=== PATIENT | female | born 1980 | race Caucasian/White ===

== ENCOUNTER 2017-01-09 05:04 | Emergency (ER) | payer BC ==
[2017-01-09 05:16] VITALS: BP 133/82
[2017-01-09] MEDS ORDERED: LORazepam 2 MG/ML MDV IVPUSH ONE (05:24)
--- NOTE | 2017-01-09 05:29 | EDM.PDOC ---
ED HPI GENERAL MEDICAL PROBLEM - General Chief Complaint: Neurological Problem Stated Complaint: vomiting dizzy shakes Time Seen by Provider: 01/09/17 05:23 Source of Information: Reports: Patient, Family (spouse) History Limitations: Reports: Altered Mental Status - History of Present Illness INITIAL COMMENTS - FREE TEXT/NARRATIVE: 36-year-old female comes to the ED with her . History is primarily provided by the as the patient has no recollection of what has happened to her. reports that he awoke it is the bed was shaking and he turned on the light and witness his shaking rhythmically particularly in her upper extremities. She had a dazed confused look on her face during off into space. He appreciated that she seemed to have spit up or vomited a small quantity on her nature. He states that the shaking episode lasted less than 5 minutes. After this she was very disoriented and confused initially could just stare at him it was a good 10 or 15 minutes before she can respond verbally and she remained very confused disoriented. He found it difficult to try and get her out to the car to bring her to the hospital as she turned around went back into the house. He called her father to come over and help convince her that this was the right thing to do. She's never had a seizure in the past. She spent most of the weekend in [place] at a woman's retreat. Denies any heavy alcohol use. She states that was disrupted sleep as she had to sleep in the same room as another female who snored a great deal and kept her awake the first night. Secondly she got a little sleep when she slept on the couch. She takes no new medications. She takes a herbal anxiety relief medication. This is not new for her. She takes hyoscyamine tablet daily for irritable bowel syndrome. No recent falls or closed head injuries. No recent illnesses with fever chills nausea or vomiting. At present she denies a headache. She is concerned because she can't remember certain things. Her related that initially she didn't know who he was. Initially she had trouble walking as she was very weak in her extremities. The history strongly suggests that she had a seizure with postictal phase. She is now able to answer all questions appropriately but can't remember what has happened to her of course.no history of tongue biting or loss of bowel or bladder control. Onset: Today Onset Date: 01/09/17 Onset Time: 04:20 Duration: Minutes: (best estimate by .) Location: Reports: Generalized Severity: Moderate Improves with: Reports: Other (cognitive function has returned over time as has her mobility.) Worsens with: Reports: None Context: Reports: Other (awoke from sleep with seizure activity.) Associated Symptoms: Reports: Confusion, Nausea/Vomiting (small amount of emesis occurred according to the was on her night shirt when he woke awoke from), Seizure, Weakness ( for a significant period of time.). 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: Reports: Other (see below) (none.) - Related Data Allergies Allergy/AdvReac Type Severity Reaction Status Date / Time codeine Allergy Confusion Verified 01/09/17 05:17 Home Meds: Home Meds Cholecalciferol (Vitamin D3) [Vitamin D] 1 tab PO DAILY 01/09/17 [History] Fexofenadine [Mayra] 60 mg PO DAILY 01/09/17 [History] Hyoscyamine Sulfate [Hyoscyamine Sulfate ER] 0.375 mg PO DAILY 01/09/17 [History ] Pantoprazole Sodium [Protonix] 20 mg PO DAILY 01/09/17 [History] Past Medical History Gastrointestinal History: Reports: Irritable Bowel Syndrome Social & Family History - Living Situation & Occupation Living situation: Reports: Occupation: Employed ED ROS GENERAL - Review of Systems Review Of Systems: See Below Constitutional: Reports: Weakness, Fatigue. Denies: Fever, Chills, Malaise, Decreased Appetite, Weight Loss HEENT: Reports: No Symptoms Respiratory: Reports: No Symptoms Cardiovascular: Reports: No Symptoms Endocrine: Reports: Fatigue GI/Abdominal: Reports: No Symptoms : Reports: No Symptoms Musculoskeletal: Reports: No Symptoms Skin: Reports: Pallor, Diaphoresis Neurological: Reports: Confusion (but this is), Difficulty Walking ( generalizedinitially but pretty well back to normal by the time she can't got to the ED.), Weakness, Change in Speech (speech was very slow and slurred and nonpurposeful initially but has gradually returned to normal.). Denies: Dizziness ( improving good deal over the last half hour.), Headache, Numbness, Syncope, Tingling Psychiatric: Reports: Anxiety Hematologic/Lymphatic: Reports: No Symptoms Immunologic: Reports: No Symptoms - Physical Exam Exam: See Below Exam Limited By: No Limitations General Appearance: Alert, WD/WN, Anxious, Moderate Distress, Other (pale in color.) Eye Exam: Bilateral Eye: Normal Inspection, PERRL Throat/Mouth: Normal Inspection, Normal Lips, Normal Teeth, Normal Oropharynx. No: Evidence of Tongue Biting Head Exam: Atraumatic, Normocephalic Neck: Normal Inspection, Supple, Non-Tender, Full Range of Motion. No: Lymphadenopathy (L), Lymphadenopathy (R) Respiratory/Chest: Lungs Clear, Normal Breath Sounds, No Accessory Muscle Use, Respiratory Distress (mild tachypnea) Cardiovascular: Normal Peripheral Pulses, No Edema, No Gallop, No Murmur, No Rub , Tachycardia (resting tachycardia at 1 12/m.) GI/Abdominal: Normal Bowel Sounds, Soft, Non-Tender, No Organomegaly, No Abnormal Bruit, No Mass Neuro Exam (Abbreviated): Alert, Oriented, CN II-XII Intact, Normal Cognition, Normal Reflexes, No Motor/Sensory Deficits, Memory Loss Recent Events, Other ( Babinski was negative.). No: Sensory/Motor Deficit DTR: 2+: Achilles (R), Achilles (L), 3+: Bicep (R), Bicep (L), Patella (R), Patella (L) Back Exam: Normal Inspection Extremities: Normal Inspection, Normal Range of Motion, Non-Tender, No Pedal Edema, Normal Capillary Refill Psychiatric: Anxious Skin Exam: Warm, Dry, Cool, Pallor (moderate) Course - Vital Signs Last Recorded V/S: Last Vital Signs Temp 36.2 C 01/09/17 05:10 Pulse 111 H 01/09/17 05:10 Resp 22 H 01/09/17 05:10 BP 133/82 01/09/17 05:10 Pulse Ox 93 L 01/09/17 05:10 - Orders/Labs/Meds Labs: Laboratory Tests 01/09/17 01/09/17 01/09/17 Range/Units 05:13 05:15 05:15 WBC 9.13 (3.98-10.04) K/mm3 RBC 4.63 (3.98-5.22) M/mm3 Hgb 13.4 (11.2-15.7) gm/L Hct 39.7 (34.1-44.9) % MCV 85.7 (79.4-94.8) fl MCH 28.9 (25.6-32.2) pg MCHC 33.8 (32.2-35.5) g/dl RDW Std Deviation 41.5 (36.4-46.3) fL Plt Count 354 (182-369) K/mm3 MPV 9.1 L (9.4-12.3) fl Neutrophils % (Manual) 50 (40-60) % Band Neutrophils % 0 (0-10) % Lymphocytes % (Manual) 38 (20-40) % Atypical Lymphs % 0 % Monocytes % (Manual) 9 (2-10) % Eosinophils % (Manual) 3 (0.7-5.8) % Basophils % (Manual) 0 L (0.1-1.2) Platelet Estimate Adequate RBC Morph Comment Normal Sodium 139 (136-145) mEq/L Potassium 3.9 (3.5-5.1) mEq/L Chloride 103 (98-107) mEq/L Carbon Dioxide 22 (21-32) mEq/L Anion Gap 17.9 H (5-15) BUN 14 (7-18) mg/dL Creatinine 0.9 (0.55-1.02) mg/dL Est Cr Clr Drug Dosing 64.58 mL/min Estimated GFR (MDRD) > 60 (>60) mL/min BUN/Creatinine Ratio 15.6 (14-18) Glucose 115 H (74-106) mg/dL POC Glucose 109 H (70-105) mg/dL Lactic Acid (0.4-2.0) mmol/L Calcium 8.9 (8.5-10.1) mg/dL Magnesium 1.9 (1.8-2.4) mg/dl Total Bilirubin 0.3 (0.2-1.0) mg/dL AST 24 (15-37) U/L ALT 44 (14-59) U/L Alkaline Phosphatase 88 (46-116) U/L Total Protein 7.0 (6.4-8.2) g/dl Albumin 3.2 L (3.4-5.0) g/dl Globulin 3.8 gm/dL Albumin/Globulin Ratio 0.8 L (1-2) 10/09/17 Range/Units 05:35 WBC (3.98-10.04) K/mm3 RBC (3.98-5.22) M/mm3 Hgb (11.2-15.7) gm/L Hct (34.1-44.9) % MCV (79.4-94.8) fl MCH (25.6-32.2) pg MCHC (32.2-35.5) g/dl RDW Std Deviation (36.4-46.3) fL Plt Count (182-369) K/mm3 MPV (9.4-12.3) fl Neutrophils % (Manual) (40-60) % Band Neutrophils % (0-10) % Lymphocytes % (Manual) (20-40) % Atypical Lymphs % % Monocytes % (Manual) (2-10) % Eosinophils % (Manual) (0.7-5.8) % Basophils % (Manual) (0.1-1.2) Platelet Estimate RBC Morph Comment Sodium (136-145) mEq/L Potassium (3.5-5.1) mEq/L Chloride (98-107) mEq/L Carbon Dioxide (21-32) mEq/L Anion Gap (5-15) BUN (7-18) mg/dL Creatinine (0.55-1.02) mg/dL Est Cr Clr Drug Dosing mL/min Estimated GFR (MDRD) (>60) mL/min BUN/Creatinine Ratio (14-18) Glucose (74-106) mg/dL POC Glucose (70-105) mg/dL Lactic Acid 2.2 H (0.4-2.0) mmol/L Calcium (8.5-10.1) mg/dL Magnesium (1.8-2.4) mg/dl Total Bilirubin (0.2-1.0) mg/dL AST (15-37) U/L ALT (14-59) U/L Alkaline Phosphatase (46-116) U/L Total Protein (6.4-8.2) g/dl Albumin (3.4-5.0) g/dl Globulin gm/dL Albumin/Globulin Ratio (1-2) Meds: Medications Discontinued Medications Generic Name Dose Route Start Last Admin Trade Name Freq PRN Reason Stop Dose Admin Dextrose/Sodium Chloride 1,000 mls @ 150 mls/hr 01/09/17 05:30 01/09/17 05:34 Dextrose 5%-Normal Saline IV 150 mls/hr ASDIRECTED BRUCE Administration Lorazepam 1 mg 01/09/17 05:24 01/09/17 05:29 Ativan IVPUSH 01/09/17 05:25 1 mg ONETIME ONE Administration - Radiology Interpretation Free Text/Narrative:: 36-year-old female presents the ED in the accompaniment of her . He is able to provide most of the history. States he awoke from sleep due to the bed shaking. When he turned on the light he witnessed his experiencing jerking movements of her arms that he could appreciate and appeared to have vomited a bit on her night shirt. He states the seizure like activity or clonic activity lasted 3-5 minutes. She was then very lethargic and confused and could not speak for a lengthy period of time. Speech gradually improved so that it was purposeful and normal. Initially it was slurred and slow. Similarly her motor activity took a good time length of time to improve to the point that she could walk. It is estimated that her postictal phase last about 45 minutes. Patient has no recollection of what is happening to her. He had a weekend away from home and recognized 1 night without any sleep due to persistent her sleeping quarters snoring a good deal.skeletal better sleep Monday night. No alcohol use. Denies taking any street drugs. No changes to her usual medications. No history of previous seizure problems. Plan IV D5 normal saline at 150 mils per hour. We'll give her Ativan 1 mg IV to prevent further seizure activity and provide mild sedation for CT of the brain. Routine labs to be collected. - Re-Assessments/Exams Free Text/Narrative Re-Assessment/Exam: 01/09/17 06:09 CT of the brain appears to be completely normal. 01/09/17 06:10 Labs are back revealing a white count of 9.13 with differential pending. Hemoglobin is good at 13.4 hematocrit is 39.7. Platelets normal 354, 000. Sodium 139 potassium 3.9 chloride 103 bicarbonate 22 and a gap is elevated at 17.9 compatible with a metabolic acidosis occurring from seizure activity. Creatinine is 0.9 EGFR is greater than 60. Glucose is 1:15. Calcium was normal at 8.9 magnesium normal at 1.9. Liver function normal albumin slightly low at 3.2. Total protein normal. 01/09/17 06:33 Patient is back to normal.she is a little tired from the Ativan. Plan will be to put her off work today so that she can catch up on sleep she missed over the weekend. The disrupted sleep for 2 days could well of the no precipitant for the seizure to occurred. At this time I will not place her on any antiseizure medication. I'll up with her normal care provider Shannan Self to have arrange an MRI of her brain and an EEG study. If these are normal then we adopt a wait and see approach as many times patients never have another seizure. Her high also mean is an anticholinergic and does lower seizure threshold. However she's been on this medication for many years. Departure - Departure Time of Disposition: 06:35 Disposition: Home, Self-Care 01 Condition: Fair Clinical Impression: New onset seizure - Discharge Information Instructions: Nonepileptic Seizures Referrals: Shannan Self, [employer] SUPERVISOR [Primary Care Provider] - Forms: ED Department Discharge, ED Return to Work/School Form Additional Instructions: Evaluation in the emergency room this morning due to new onset grand mal seizure occurrence during the night. Seizure activity awoke her from sleep and he was able to provide a very good history of her postictal phase which means the period of time after a seizure occurs in terms of not being able to speak immediately days and very confused and often taking 30-40 minutes before you return to normal. Often unable to walk because of weakness in the muscles etc. I don't have any doubt that you had a seizure this morning. The cause of the seizure is left up in the air. It is highly likely that lack of sleep Monday and Monday night may well of precipitated your seizure.CT scan of your brain done in the ED is completely normal with no signs of bleeding or tumor or mass effect. Similarly labs are essentially normal other than elevation of markers that suggest seizure has occurred.at this time we will would not recommend antiseizure medication. As often patients have one seizure and never have another one. I would suggest off work today to catch up on lost sleep over the weekend. Also you were given a dose of Ativan 1 mg in the emergency room to suppress any further seizure activity for the next 6-8 hours. This also will make you a bit tired and usually will need to go to bed this morning. Follow-up with Shannan Self when able. She will arrange for an MRI of your brain and an EEG study to see if there are any abnormalities detected by these test. If none are found then we usually adopt a wait and see approach as to whether or not any further seizure activity occurs. If it does so we usually would advise starting antiseizure medication. Would recommend no driving for the next 48 hours and if no further seizure activity occurs you may resume normal driving activities.
[2017-01-09] MEDS ORDERED: Dextrose 5%-0.9% NaCl 1,000 ML IV SCH (05:30)
--- NOTE | 2017-01-09 06:21 | CT ---
Head CT Technique: Multiple axial sections through the brain were obtained. Intravenous contrast was not utilized. Comparison: No previous intracranial imaging. Findings: Ventricles along with basal cisterns and sulci over the convexities are within normal limits for the patient's age. No abnormal parenchymal densities are seen. No evidence of intracranial hemorrhage. No midline shift or mass effect is seen. Bone window settings were reviewed which shows no acute calvarial abnormality. Visualized sinuses are clear. Impression: 1. Nothing acute is identified on noncontrast head CT study. Diagnostic code #1
== END 2017-01-09 06:55 | disposition home or self-care (01) ==
LOC: JD.ED 05:04
DX: R56.9 Unspecified convulsions (principal); Z88.5 Allergy status to narcotic agent; Z79.899 Other long term (current) drug therapy
CPT/HCPCS: 36415; 70450; 80053; 82962; 83605; 83735; 85025; 96361; 96374; 99285; J2060; J7042

== ENCOUNTER 2020-05-28 19:49 | Emergency (ER) | payer OTHER ==
[2020-05-28 20:05] VITALS: BP 116/78; PULSE 98
[2020-05-28] MEDS ORDERED: Sodium Chloride 0.9% 10 ML Syringe FLUSH PRN (20:15)
[2020-05-28] MEDS ORDERED: Ondansetron 4 MG/2 ML SDV IVPUSH ONE ×2 (20:17→21:20)
[2020-05-28] MEDS ORDERED: HYDROmorphone 0.5 MG/0.5 ML Syringe IVPUSH ONE (20:17)
--- NOTE | 2020-05-28 20:36 | EDM.PDOC ---
ED HPI GENERAL MEDICAL PROBLEM - General Source of Information: Reports: Patient, Family, RN Notes Reviewed History Limitations: Reports: No Limitations Jaw Pain Score (Numeric/FACES): 8 <Silvia Urbina - Last Filed: 06/01/20 20:43> <Nehemias Naylor - Last Filed: 06/07/20 07:46> - General Chief Complaint: Neurological Problem Stated Complaint: SEIZURE AND INJURED JAW Time Seen by Provider: 05/28/20 20:02 - History of Present Illness INITIAL COMMENTS - FREE TEXT/NARRATIVE: Patient is a 39-year-old female presenting to the emergency department with her with complaints of jaw pain and inability to close her mouth after having a grand mal seizure at home. Patient has a known seizure disorder. Pat karey and state that her neurologist, Dr. Tinoco, is in the process of adjusting her medications that they have been dealing with breakthrough seizures intermittently during this adjustment period. This evening, she felt the onset of seizure and her assisted her to the couch. She did not fall. states that she had a grand mal seizure lasting approximately 1 minute. During the seizure, her "jaw contorted "and she has been unable to close her jaw since. She states that she has pain to the bilateral mandible. Aside from not being able to close her jaw, she feels well. Denies any postictal fatigue, nausea, or vomiting. (Silvia Urbina) - Related Data Allergies Allergy/AdvReac Type Severity Reaction Status Date / Time povidone-iodine Allergy Severe Cannot Verified 05/28/20 20:05 Remember shellfish derived Allergy Severe Cannot Verified 05/28/20 20:05 Remember codeine AdvReac Severe Confusion Verified 05/28/20 20:05 Home Meds: Home Meds Cholecalciferol (Vitamin D3) [Vitamin D] 1 tab PO DAILY 01/09/17 [History] Fexofenadine [Mayra] 60 mg PO DAILY 01/09/17 [History] Hyoscyamine Sulfate [Hyoscyamine Sulfate ER] 0.375 mg PO DAILY 01/09/17 [History] Pantoprazole Sodium [Protonix] 20 mg PO DAILY 01/09/17 [History] Acetaminophen/HYDROcodone [Bradgate 325-5 MG] 1 tab PO Q4H PRN #10 tablet 05/28/20 [Rx] busPIRone [Buspar] 7.5 mg PO TID 05/28/20 [History] lamoTRIgine [Lamotrigine] 150 mg PO BID 05/28/20 [History] levETIRAcetam [Keppra] 250 mg PO BID 05/28/20 [History] Past Medical History Gastrointestinal History: Reports: Irritable Bowel Syndrome ADOPTION COORDINATOR History: Reports: Endometrial Ablation, Endometriosis Neurological History: Reports: Migraines, Seizure Other Neuro History: maybe started in September 2019 Psychiatric History: Reports: Anxiety, Depression - Infectious Disease History Infectious Disease History: Reports: Chicken Pox - Past Surgical History GI Surgical History: Reports: Cholecystectomy <Silvia Urbina - Last Filed: 06/01/20 20:43> Social & Family History - Tobacco Use Tobacco Use Status *Q: Never Tobacco User - Caffeine Use Caffeine Use: Reports: Soda - Recreational Drug Use Recreational Drug Use: No - Living Situation & Occupation Living situation: Reports: Occupation: Employed <Silvia Urbina Last Filed: 06/01/20 20:43> ED ROS GENERAL - Review of Systems Review Of Systems: See Below Constitutional: Reports: No Symptoms. Denies: Fever, Chills, Weakness HEENT: Reports: Other (Jaw pain and inability to close mouth) Respiratory: Reports: No Symptoms Cardiovascular: Reports: No Symptoms Endocrine: Reports: No Symptoms GI/Abdominal: Reports: No Symptoms : Reports: No Symptoms Musculoskeletal: Reports: No Symptoms Skin: Reports: No Symptoms Neurological: Reports: Seizure Psychiatric: Reports: No Symptoms Hematologic/Lymphatic: Reports: No Symptoms Immunologic: Reports: No Symptoms <Silvia Urbina Last Filed: 06/01/20 20:43> - Physical Exam Exam: See Below General Appearance: Alert, WD/WN, No Apparent Distress Throat/Mouth: Other (Difficulty with speech. Jaw locked approximately 2 and half centimeters open.) Respiratory/Chest: No Respiratory Distress, Lungs Clear, Normal Breath Sounds, No Accessory Muscle Use, Chest Non-Tender Cardiovascular: Normal Peripheral Pulses, Regular Rate, Rhythm, No Edema, No Gallop, No JVD, No Murmur, No Rub Neuro Exam (Abbreviated): Alert, Oriented, CN II-XII Intact, Normal Cognition, Normal Gait, Normal Reflexes, No Motor/Sensory Deficits Psychiatric: Normal Affect, Normal Mood Skin Exam: Warm, Dry, Intact, Normal Color, No Rash <Silvia Urbina - Last Filed: 06/01/20 20:43> ED PROCEDURES - Joint Reduction Other Sedation: Conscious Sedation Pre-procedure NV status: Normal Post-procedure NV status: Normal Technique: Traction/Counter Traction Number of Attempts: 2 Post-Reduction Imaging: Completely Reduced Complication Description: And suffered a bilateral mandibular condyle dislocation after suffering a grand mal convulsion earlier tonight. CT confirmed the bilateral mandibular condyle dislocation. With the aid of propofol providing conscious sedation we were able to reduce the mandible with a good deal of effort. CT of the mandible will be repeated to make sure that reduction has been complete. <Nehemias Naylor - Last Filed: 06/07/20 07:46> Course <Silvia Urbina - Last Filed: 06/01/20 20:43> <Nehemias Naylor - Last Filed: 06/07/20 07:46> - Vital Signs Last Recorded V/S: Last Vital Signs Temp 36.6 C 05/28/20 20:03 Pulse 98 05/28/20 20:03 Resp 20 05/28/20 20:03 BP 116/78 05/28/20 20:03 Pulse Ox 99 05/28/20 20:03 - Orders/Labs/Meds Meds: Medications Discontinued Medications Generic Name Dose Route Start Last Admin Trade Name Patience PRN Reason Stop Dose Admin Hydrocodone Bitart/Acetaminophen 1 tab 05/28/20 22:00 05/28/20 22:44 Bradgate 325-5 Mg PO 05/28/20 22:01 1 tab ONETIME ONE Administration Hydromorphone HCl 0.5 mg 05/28/20 20:17 05/28/20 20:24 Dilaudid IVPUSH 05/28/20 20:18 0.5 mg ONETIME ONE Administration Ondansetron HCl 4 mg 05/28/20 20:17 05/28/20 20:24 Zofran IVPUSH 05/28/20 20:18 4 mg ONETIME ONE Administration Ondansetron HCl 4 mg 05/28/20 21:20 05/28/20 21:42 Zofran IVPUSH 05/28/20 21:21 4 mg ONETIME ONE Administration Propofol 180 mg 05/28/20 21:12 05/28/20 21:42 Diprivan 20 Ml IVPUSH 05/28/20 21:13 180 mg ONETIME ONE Administration Sodium Chloride 10 ml 05/28/20 20:15 05/28/20 20:21 Saline Flush FLUSH 10 ml ASDIRECTED PRN Administration Keep Vein Open - Re-Assessments/Exams Free Text/Narrative Re-Assessment/Exam: Patient is a 39-year-old female presenting to the emergency department with complaints of pain to her jaw and inability close her mouth after suffering a grand mal seizure at home. Patient was examined by both myself and Dr. Cyndy MD. She explains that she is going through an adjustment of her seizure med ications and has been having frequent breakthrough seizures which her neurologist is aware of. This evening, she had approximately 1 minute grand mal seizure during which time her "jaw contorted ". Since that time she has been unable to close her jaw. She appears to be suffering from a dislocation of the mandible. I have ordered maxillofacial CT to evaluate for any possible fractures. We will also give Dilaudid 0.5 mg IV for pain and Zofran 4 mg for nausea. With the sense of Dr. Naylor, we will plan to give IV propofol for procedural sedation and reduce her mandible. Patient is in agreement with this plan. Written consent has been obtained. 05/28/20 21:[address] shows bilateral dislocation of the mandible with no visible fractures. Mandible was able to be reduced by Dr. Naylor. Patient is moving her jaw without difficulty. States it feels "much better ". We will watch her for approximate 20 minutes and then discharge home. I will write a prescription for Bradgate for pain. Recommend soft diet. They will contact her neurologist tomorrow morning to make them aware of the seizure. (Silvia Urbina) 05/28/20 21:53 she has recovered satisfactorily from the reduction and the propofol used for conscious sedation. She is able to open close her mandible and jaw normally speak normally. No malocclusion. Therefore repeat CT to confirm rib reduction will not be done. She will be on a soft diet for the next week. (Nehemias Naylor) Departure - Departure Time of Disposition: 22:01 Condition: Good - Discharge Information *PRESCRIPTION DRUG MONITORING PROGRAM REVIEWED*: Yes *COPY OF PRESCRIPTION DRUG MONITORING REPORT IN PATIENT ANNABELLA: No <Silvia Urbina - Last Filed: 06/01/20 20:43> <Nehemias Naylor - Last Filed: 06/07/20 07:46> - Departure Disposition: Home, Self-Care 01 Clinical Impression: Seizure Dislocated mandible Qualifiers: Encounter type: initial encounter Qualified Code(s): S03.00XA - Dislocation of jaw, unspecified side, initial encounter - Discharge Information Prescriptions: Acetaminophen/HYDROcodone [Bradgate 325-5 MG] 1 tab PO Q4H PRN #10 tablet PRN Reason: Pain Instructions: Epilepsy, [id number], Jaw Dislocation Referrals: Nehemias Hammonds MD [Primary Care Provider] - Forms: ED Department Discharge Additional Instructions: You were seen the emergency department today for evaluation after sustaining a seizure at home and being unable to close your jaw. On exam, you did have a dislocation of your mandible. After sedation, your jaw was able to be reduced. It would likely be uncomfortable for approximate the next week. Recommend a soft diet. May take Tylenol routinely. For pain not relieved by Tylenol, a s hort course of Bradgate has been prescribed. Recommend contacting your neurologist tomorrow to make them aware of the seizure and to discuss medication adjustments if needed. Return to ER for any new or worsening symptoms. Sepsis Event Note (ED) - Evaluation Sepsis Screening Result: No Definite Risk <Silvia Urbina - Last Filed: 06/01/20 20:43> ED PROCEDURAL SEDATION - Pre Procedure Indications: other (Duction of dislocated mandible) Preparations: procedure explained, consent signed, oxygen, continuous pulse oximeter, suction, continuous compliance monitor, constant attendance - Physical Exam Airway: difficult facial/neck anatomy Cardiovascular: normal heart sounds Respiratory: normal breath sounds Neurological: alert, responsive, NAD, mild distress Meilampati Classification: 2 (Tonsillar pillars and uvula hidden by base of tongue) - Procedure Sedation Sedation: propofol (Total of 180 mg given with initial bolus of 40 mg followed by multiple 20 mg boluses to achieve adequate sedation) ASA Classification: 2 (Patient with a mild systemic disease) - Intra Procedure Condition during procedure: moderately sedated, oxygenation stable Complications: none Reversal: none - Post Procedure Condition after procedure: alert, NAD, responds to verbal stimuli - Discharge Condition Patient returned to pre-procedure baseline: Yes Alert prior to discharge: Yes Ambulatory with assistance: Yes Vital signs normal: Yes Time spent with sedated patient: 20 min <Nehemias Naylor - Last Filed: 06/07/20 07:46>
[2020-05-28] MEDS ORDERED: Propofol 200 MG/20 ML SDV IVPUSH ONE (21:12)
[2020-05-28] MEDS ORDERED: Acetaminophen/HYDROcodone 325-5 MG Tab PO ONE (22:00)
--- NOTE | 2020-05-29 08:09 | CT ---
CT maxillofacial structures Technique: Multiple axial sections were obtained through the maxillofacial structures. Reconstructed coronal and sagittal images were obtained. Intravenous contrast was not utilized. Findings: Mandibular condyles are anteriorly displaced in relation to the temporomandibular joints on both sides. This is compatible with bilateral temporomandibular dislocation. Nasal septal deviation is appreciated. Minimal mucosal thickening is seen within the right side of the sphenoid sinus. No acute paranasal sinus findings are seen. No acute facial bone fracture is appreciated. On the sagittal views there is mild scattered degenerative change within the cervical spine. Impression: 1. Bilateral temporomandibular dislocation. 2. Other findings believed to be chronic as noted above. Diagnostic code #3 I agree with preliminary report from [facility], finalized on 05/28/20, 10:31 PM DIRECTOR BUSINESS MANAGEMENT
== END 2020-05-28 22:30 | disposition home or self-care (01) ==
LOC: JD.ED 19:49
DX: G40.909 Epilepsy, unspecified, not intractable, without status epilepticus (principal); S03.03XA Dislocation of jaw, bilateral, initial encounter; Z91.048 Other nonmedicinal substance allergy status; Z91.013 Allergy to seafood; Z88.5 Allergy status to narcotic agent; X58.XXXA Exposure to other specified factors, initial encounter; Y92.009 Unspecified place in unspecified non-institutional (private) residence as the place of occurrence of the external cause
CPT/HCPCS: 21480; 70486; 96374; 96375; 96376; 99152; 99285; A9270; J1170; J2405; J2704; 99284